=== PATIENT | female | born 1980 | race Caucasian/White ===

== ENCOUNTER 2018-05-20 05:00 | Inpatient (IN) | payer BC ==
[2018-05-20] MEDS ORDERED: SODIUM CHLORIDE 0.9% 50 ML 25 ML IV PRN (05:40)
[2018-05-20] MEDS ORDERED: CITRIC ACID/SODIUM CITRATE SOL PO ONE (05:40)
[2018-05-20] MEDS ORDERED: SODIUM CHLORIDE 0.9% FLUSH 10 ML SOL IV PRN (05:42)
[2018-05-20] MEDS ORDERED: CEFAZOLIN (PREMIX) 1 GM 1 GM/50 ML SOL IV SCH (05:45)
[2018-05-20] MEDS: LACTATED RINGERS 1,000 ML IV SCH ×4 (05:45→17:34)
[2018-05-20] MEDS ORDERED: ONDANSETRON HCL 4 MG/2 ML SOL ONE (06:12)
[2018-05-20] MEDS ORDERED: DEXAMETHASONE 20 MG/5 ML (4 MG/ML SOL) ONE (06:12)
[2018-05-20] MEDS ORDERED: METOCLOPRAMIDE HYDROCHLORIDE 5 MG/ML SOL ONE (06:12)
[2018-05-20] MEDS ORDERED: MORPHINE SULFATE 0.5 MG/ML SOL ONE (06:13)
[2018-05-20] MEDS ORDERED: EPHEDRINE SULFATE 50 MG/ML SOL ONE (06:55)
[2018-05-20] MEDS ORDERED: LACTATED RINGERS 1,000 ML with OXYTOCIN 10000 MU/ML 20 MU IV ONE (07:12)
[2018-05-20] MEDS ORDERED: OXYTOCIN 10000 MU/ML SOL ONE ×2 (07:23→08:08)
[2018-05-20] MEDS ORDERED: [UNRECOGNIZED DRUG - OTHER] IV ONE (08:10)
[2018-05-20 08:27] LABS: APPEARANCE,URINE Clear; BILIRUBIN,URINE NEGATIVE (NEGATIVE); COLOR,URINE Yellow; GLUCOSE, URINE (UA) NEGATIVE (NEGATIVE); KETONES,URINE 1+ (NEGATIVE); LEUKOCYTE ESTERASE ,URINE NEGATIVE (NEGATIVE); NITRATE,URINE NEGATIVE (NEGATIVE); OCCULT BLOOD,URINE NEGATIVE (NEG-TRACE); UROBILINOGEN,URINE 0.2 (0.2-1.0 EU)
[2018-05-20 08:35] LABS: BACTERIA TRACE (< 1+); CRYSTALS NEGATIVE (0-3 AVE/HPF); EPITHELIAL CELLS NEGATIVE (SQUAMOUS); RBC,URINE NEGATIVE (0-3AV/HPF); WBC,URINE NEGATIVE (0-5AV/HPF)
[2018-05-20] MEDS ORDERED: DIPHENHYDRAMINE 25 MG CAP PO PRN (09:18)
[2018-05-20] MEDS ORDERED: ONDANSETRON HCL 4 MG/2 ML SOL IV PRN (09:18)
[2018-05-20] MEDS ORDERED: BISACODYL 10 MG SUP PR PRN (09:18)
[2018-05-20] MEDS ORDERED: WITCH HAZEL 1 EA PAD TOP PRN (09:18)
[2018-05-20] MEDS ORDERED: KETOROLAC TROMETHAMINE 30 MG/ML SOL IV PRN (09:18)
[2018-05-20] MEDS ORDERED: FLEET ENEMA PR PRN (09:18)
[2018-05-20] MEDS ORDERED: METHYLERGONOVINE MALEATE 0.2 MG TAB PO PRN (09:18)
[2018-05-20] MEDS ORDERED: TEMAZEPAM 15MG 15 MG CAP PO PRN (09:18)
[2018-05-20] MEDS ORDERED: BENZOCAINE/MENTHOL 1 SPR TOP PRN (09:18)
[2018-05-20] MEDS: APAP/HYDROCODONE 325/5 TAB PO PRN ×3 (10:25→19:44)
[2018-05-20] MEDS: CEFAZOLIN SODIUM 1 GM PDS IV SCH ×2 (10:39→16:14)
[2018-05-20] MEDS: IBUPROFEN 600 MG TAB PO PRN ×2 (13:28→23:37)
[2018-05-20] MEDS: DOCUSATE SODIUM 100 MG SGL PO SCH (20:32)
[2018-05-21] MEDS: LACTATED RINGERS 1,000 ML IV SCH ×3 (00:58→12:55)
[2018-05-21] MEDS: APAP/HYDROCODONE 325/5 TAB PO PRN ×5 (03:43→22:17)
[2018-05-21] MEDS ORDERED: FERROUS GLUCONATE 324 MG TABLET ONE (08:35)
[2018-05-21] MEDS: IBUPROFEN 600 MG TAB PO PRN ×3 (08:37→21:16)
[2018-05-21] MEDS: DOCUSATE SODIUM 100 MG SGL PO SCH ×2 (08:37→21:16)
[2018-05-21] MEDS: FOLIC ACID 1 MG TAB PO SCH (08:37)
[2018-05-21] MEDS ORDERED: FERROUS GLUCONATE 324 MG TAB PO SCH (09:00)
[2018-05-21] MEDS ORDERED: MULTIVITAMIN2 1 EA TAB PO SCH (09:00)
[2018-05-21] MEDS: CLOTRIMAZOLE 1% CREAM TOP SCH ×2 (18:03→22:50)
[2018-05-21] MEDS: FERROUS GLUCONATE 324 MG TABLET PO SCH (21:16)
[2018-05-21] MEDS: MULTIVITAMIN2 1 EA TAB PO SCH (21:16)
[2018-05-22] MEDS: APAP/HYDROCODONE 325/5 TAB PO PRN ×5 (02:18→19:47)
[2018-05-22] MEDS: IBUPROFEN 600 MG TAB PO PRN ×3 (05:23→18:49)
[2018-05-22] MEDS: DOCUSATE SODIUM 100 MG SGL PO SCH ×2 (10:57→21:16)
[2018-05-22] MEDS: FERROUS GLUCONATE 324 MG TABLET PO SCH ×2 (10:58→21:16)
[2018-05-22] MEDS: FOLIC ACID 1 MG TAB PO SCH (10:58)
[2018-05-22] MEDS: CLOTRIMAZOLE 1% CREAM TOP SCH ×2 (11:00→21:17)
[2018-05-22] MEDS: MULTIVITAMIN2 1 EA TAB PO SCH (21:17)
[2018-05-22 23:05] VITALS: O2SAT 98
[2018-05-23] MEDS: APAP/HYDROCODONE 325/5 TAB PO PRN ×4 (00:02→13:56)
[2018-05-23] MEDS: IBUPROFEN 600 MG TAB PO PRN ×2 (02:22→11:18)
[2018-05-23 05:51] VITALS: TEMP 97.7
[2018-05-23 07:35] LABS: BASOPHILS % (AUTO) 1 % (0-3); EOSINOPHILS % (AUTO) 2 % (0-9); HEMATOCRIT 26 % (35-47); LYMPHOCYTES % (AUTO) 24.48 % (10-50); MEAN CORPUSCULAR HGB CONC 31.3 gm/dl (32.0-36.0); MEAN CORPUSCULAR VOLUME 86 fL (81-99); NEUTROPHILS % (AUTO) 66.7 % (37-80)
[2018-05-23] MEDS: CLOTRIMAZOLE 1% CREAM TOP SCH (08:31)
[2018-05-23] MEDS: FOLIC ACID 1 MG TAB PO SCH (08:31)
[2018-05-23] MEDS: DOCUSATE SODIUM 100 MG SGL PO SCH (08:31)
[2018-05-23] MEDS: FERROUS GLUCONATE 324 MG TABLET PO SCH (08:31)
[2018-05-23 13:44] VITALS: BP 114/70; PULSE 88; RESP 18
== END 2018-05-23 15:00 | disposition home or self-care (01) | DRG 540 ==
LOC: OBSVTOIN 05:00 → OB 05:00
PROVIDERS: ADMIT Family Medicine; ATTEND Family Medicine
PROC: 0UB70ZZ Excision of Bilateral Fallopian Tubes, Open Approach (ICD-10-PCS; 2018-05-20)
PROC: 10D00Z1 Extraction of Products of Conception, Low, Open Approach (ICD-10-PCS; principal; 2018-05-20 06:30)
DX: O75.82 Onset (spontaneous) of labor after 37 completed weeks of gestation but before 39 completed weeks gestation, with delivery by (planned) cesarean section (principal); Z37.0 Single live birth; Z3A.38 38 weeks gestation of pregnancy
CPT/HCPCS: 36415; 59025; 81001; 84112; 85018; 85025; 99001; 99070; J0690; J1100; J2274; J2405; J2590; J2765; A6402; A9270-GY; J3490